=== PATIENT | female | born 1965 | race Two or more races ===

== ENCOUNTER 2019-05-23 08:53 | Emergency (ER) | payer SELFPAY ==
[~2019-05-23] VITALS: Ht 157.5 cm; Wt 47.6 kg
[2019-05-23 08:56] VITALS: Ht 157.5 cm; Wt 47.6 kg
[2019-05-23 10:08] LABS: BASOPHIL % 0.1 % (0-2)
[2019-05-23 10:10] LABS: PLATELET COUNT 123 x10^3mcL (130-400); RED CELL DISTRIBUTION WIDTH 14.8 % (11.5-14.5)
[2019-05-23 10:16] LABS: CALCIUM 7.9 mg/dL (8.5-10.1); CARBON DIOXIDE 26.1 mmol/L (21-32); CHLORIDE SERUM 108 mmol/L (98-107); CREATININE SERUM 0.8 mg/dL (0.6-1.0); GFR1 > 60 mL/min; GLUCOSE SERUM 113 mg/dL (74-106); POTASSIUM SERUM 3.6 mmol/L (3.5-5.1); SODIUM SERUM 140 mmol/L (136-145)
[2019-05-23 10:20] LABS: ALKALINE PHOSPHATASE 107 U/L (46-116); ALT/SGPT 33 U/L (14-59); AST/SGOT 47 U/L (15-37); BILIRUBIN TOTAL 0.15 mg/dL (0.20-1.00); TOTAL PROTEIN, SERUM 7.1 g/dL (6.4-8.2)
[2019-05-23 10:24] LABS: ALBUMIN 3.3 g/dL (3.4-5.0)
[2019-05-23 11:52] VITALS: BP 134/68
== END 2019-05-23 11:52 | disposition home or self-care (01) ==
LOC: ED 08:53
PROVIDERS: Emergency Medicine
DX: J10.1 Influenza due to other identified influenza virus with other respiratory manifestations (principal); I10 Essential (primary) hypertension; Z98.890 Other specified postprocedural states
CPT/HCPCS: 87804; J7030; Q0092